=== PATIENT | female | born 1975 | race Caucasian/White ===

== ENCOUNTER 2024-02-26 06:54 | Outpatient (CLI) | payer OTHER, SELFPAY ==
--- NOTE | ~2024-02-26 | US_ITS ---
Abdominal Sonogram: Real-time sonographic imaging of the abdomen was performed. Clinical History: Abdominal pain Findings: The liver appears echogenic, with no evidence of mass lesion or bile duct dilatation. Main portal vein demonstrates normal direction of flow. The spleen is normal in size without evidence of focal lesion. The gallbladder is partially distended, and appears normal with no evidence of gallsto ne or wall thickening. The common bile duct measures 3 mm. The visualized pancreas, aorta, and IVC a re unremarkable. The right kidney measures 10.9 cm in length and the left kidney measures 10.8 cm. There is no hydronephrosis or renal calculus. Impression: Diffuse fatty infiltration of the liver. Reviewed, dictated and finalized at location M. TENDER Impression: Diffuse fatty infiltration of the liver.
--- NOTE | ~2024-02-26 | US_ITS ---
EXAMINATION: US pelvic complete INDICATION: Abdominal and pelvic pain Comparison:No prior studies for comparison. TECHNIQUE: Multiple transabdominal sonographic images of the pelvis performed. FINDINGS: The uterus measures 5.5 x 3.7 x 3 cm. The endometrial complex measures 5 mm. The right ovary measures 2 x 1.2 x 1.6 cm and the left ovary measures 2.4 x 2.2 x 1.7 cm. There are small follicles in each ovary. Normal doppler signal in both ovaries. There is no free fluid in the pelvis. There are no abnormal masses seen on either side. IMPRESSION: 1. Unremarkable pelvic ultrasound. Reviewed, dictated and finalized at location B. [employer] SERVICES MANAGER
== END 2024-02-26 06:55 | disposition home or self-care (01) ==
LOC: CHSIMG 06:58
PROVIDERS: PCP Registered Nurse; Visit Provider Registered Nurse
DX: R10.9 Unspecified abdominal pain (principal); K76.0 Fatty (change of) liver, not elsewhere classified
CPT/HCPCS: 76700; 76856